=== PATIENT | female | born 1950 ===

== ENCOUNTER 2024-09-16 06:23 | Day surgery (SDC) | payer OTHER ==
[2024-09-16] MEDS ORDERED: MIDAZOLAM HCL 2 MG/2 ML VIAL IV ONE (10:45)
[2024-09-16] MEDS ORDERED: DIPHENHYDRAMINE HCL 50 MG/ML VIAL 1ML IV ONE (10:45)
[2024-09-16] MEDS ORDERED: fentaNYL CITRATE 50 MCG/ML AMPUL IV PUSH ONE (10:45)
== END 2024-09-16 12:15 | disposition home or self-care (01) ==
LOC: AMB-ENDOS 06:23
PROVIDERS: ATTEND Colon & Rectal Surgery
DX: C20 Malignant neoplasm of rectum (principal); K62.6 Ulcer of anus and rectum